=== PATIENT | female | born 1995 | race Caucasian/White ===

== ENCOUNTER 2020-09-23 17:35 | Inpatient (IN) | payer OTHER, MEDICAID, SELFPAY ==
[2020-09-23] VITALS (9 sets, daily range): BP systolic 108–142; BP diastolic 50–85; PULSE 59–77; RESP 16; TEMP 36.6; BMI 26.4
--- NOTE | 2020-09-23 18:07 | PM.IMHP ---
H&P: HPI History of Present Illness Date/Time: 09/23/20 18:07 Chief complaint: Labor Narrative: Francine Cuenca is a 25 year old female at 37 weeks admitted to L and D completely dilated. She started having irregular contractions this morning and became strong and regular approximately 0430. No record available. She states course uncomplicated. Reports history of chlmydia at the beginning of this and treated and states test of cure negative. PMH: She states hiatal hernia. Review of Systems Review of Systems: All systems reviewed & are unremarkable except as noted in HPI and below Constitutional: Constitutional: Reports no additional constitutional complaints and Denies headache(s) Eyes: Eyes: Denies spots in vision ENT: Reports system reviewed and no additional complaints, except as documented and Denies headache(s) Cardiovascular: Cardiovascular: Denies chest pain and Denies dyspnea Respiratory: Respiratory: Denies dyspnea Gastrointestinal: Gastrointestinal: Reports no additional gastrointestinal complaints Genitourinary: Genitourinary: Reports amenorrhea Musculoskeletal: Musculoskeletal: Reports no additional musculoskeletal complaints Integumentary/Breasts: Skin/Breast: Denies breast mass and Denies rash Neurologic: Denies headache(s) Psychiatric: Psychiatric: Reports no additional psychiatric complaints PMFSH Social History Social History Smoking status: Current every day smoker Tobacco type: cigarettes Substance use: current Gender identity (if verbalized by the patient): Female Sexual Orientation (if Verbalized by the Patient): Straight or Heterosexual Spiritual care concerns: No Meds Home Medications and Allergies Allergies Allergy/AdvReac Type Severity Reaction Status Date / Time Sulfa (Sulfonamide Allergy Unknown Verified 09/23/20 18:25 Antibiotics) Vital Signs Vital Signs - 24 hr 09/23/20 17:46 Pulse Rate 77 Blood Pressure 142/85 H Exam Const: General: healthy appearing and uncomfortable Eyes: General: appearance normal, both eyes and all related structures Resp: Effort & Inspection: normal respiratory effort GI: Other: Gravid no fundal tenderness no right upper quadrant pain : Manual OB Exam: other (complete dilated bulging bag) Skin: General skin exam: no rashes or lesions noted Neuro: Cognition (Neuro): normal cognition Extrem: General: normal to inspection Psych: Mental Status: mental status grossly normal Assessment and Plan Assessment and plan (1) Active labor: Status: Acute Assessment and Plan: Admit. Expectant management. Will obtain records. If not available then will draw all of OB labs. Labor admit labs. UDS.
--- NOTE | 2020-09-23 18:13 | P.PCNOB_ITS ---
OB - Delivery Note Procedure Delivery date: 09/23/20 Procedure: Spontaneous vaginal delivery Intrapartal events: Precipitous Labor < 3 hours Induction method: none Delivery monitor: external FHT Route of delivery: Laceration Description: None Specimen: Yes (Placenta and cord) Quantitative Blood Loss (ml): 150 Anesthesia type: None Disposition: floor Complications: None Narrative: Patient presented to labor and delivery. She was completely dilated and bulging bag. Had SROM 1744 clear fluid. She delivered a male over intact perineum. was vigorously crying and placed on maternal abdomen. Delayed cord clamping for 30 seconds then cord clamped and cut. Cord gases and cord blood obtained. Placenta delivered spontaneously and intact. No lacerations. Patient tolerated procedure well. [place] Baby Date of : 09/23/20 Time of : 17:55 Weeks of gestation at delivery: 37 Infant gender: Male presentation: vertex position: Left Occiput Anterior Placenta delivery description: Spontaneous score one minute: 8 score five minutes: 9
[2020-09-23 18:15] LABS: Basophils Absolute Auto 0.1 K/mm3 (0.0-0.1); Basophils Percent Auto 0.3 % (0.2-1.2); Eosinophils Absolute Auto 0.1 K/mm3 (0-0.3); Eosinophils Percent Auto 0.4 % (0-4.4); Hematocrit 37.6 % (37.0-47.0); Hemoglobin 13.3 g/dL (12.0-15.0); Immature Granulocyte Absolute 0.07 K/mm3 (0.00-0.031); Immature Granulocyte Percent A 0.4 % (0-0.5); Lymphocytes Absolute Auto 2.49 K/mm3 (0.9-3.2); Lymphocytes Percent Auto 15.7 % (18.3-44.2); Mean Corpuscular HGB Conc 35.4 g/dl (32-36); Mean Corpuscular Hemoglobin 33.1 pg (26-34); Mean Corpuscular Volume 93.5 fl (80-100); Mean Platelet Volume 10.7 fl (7.4-10.4); Monocytes Absolute Auto 0.8 K/mm3 (0.1-0.6); Monocytes Percent Auto 5.1 % (2.6-8.5); Neutrophils Absolute Auto 12.4 K/mm3 (1.3-6.7); Neutrophils Percent Auto 78.1 % (45.5-73.1); Platelet Count Result 267 k/mm3 (150-375); Red Blood Count 4.02 M/mm3 (4.2-5.4); Red Cell Distribution Width 12.8 % (11.5-14.5); White Blood Count 15.9 K/mm3 (4.5-10.0)
[2020-09-23] MEDS: OXYTOCIN 30 UNITS/NS 500 ML 30 UNITS/500 ML BAG 125 UNITS IV CONT (18:30)
--- NOTE | 2020-09-23 18:45 | LDADM ---
This patient, Francine Cuenca, was admitted to Labor/Delivery/Recovery 106 on 09/23/20 at 17:35. Plans for labor, pain management and were discussed with patient. Patient/family oriented to hospital policies and general routines including ID bracelet, bed and alarms, visiting hours, pain management, procedures, bathroom and other care routines, personal items, smoking policy, room service/diet and guest tray routines, infant security routines, and visiting hours. Patient/Family are encouraged to report perceived risks to care and to ask questions if they do not understand what they are told or what they should do. See OBIX for further documentation.
[2020-09-23] MEDS: IBUPROFEN 600 MG TABLET PO (19:02)
[2020-09-23 19:07] LABS: HIV 1/2 Ab P24 Ag Result Negative (Negative)
[2020-09-23 20:34] LABS: Hepatitis B Surface Antigen Negative (Negative); Rubella IgG Antibody 31.3 IU/ML
[2020-09-23] MEDS: ACETAMINOPHEN 325 MG TABLET 650 MG PO (20:40)
[2020-09-23 20:52] LABS: Amphetamine Screen Urine Negative (Negative); Barbiturate Screen Urine Negative (Negative); Benzodiazepines Screen Urine Negative (Negative); Cannabinoid Screen Urine Positive (Negative); Cocaine Screen Urine Positive (Negative); Methadone Screen Urine Negative (Negative); Opiate Screen Urine Negative (Negative); Phencyclidine Screen Urine Negative (Negative)
[2020-09-24] MEDS: IBUPROFEN 600 MG TABLET PO ×3 (02:45→19:02)
[2020-09-24 07:55] VITALS: BP 121/61; PULSE 62; RESP 18; TEMP 36.4; O2SAT 100
[2020-09-24] MEDS: TETANUS,DIPHTHERIA,AC PERTUSSIS ADULT (0.5 ML) BOOSTRIX IM (08:24)
--- NOTE | 2020-09-24 09:59 | PCCCNOTE ---
Addendum entered by Barbra Arrington 09/24/20 15:51: 1550: Per pt.'s RN, pt. and FOB met with [facility]. DCFS will not allow baby to discharge home with pt. Baby will discharge home with FOB parents (Lauren Cuenca) . FOB was upset by this news and became violent, he has been removed from [facility] and will not be allowed back into the hospital. Pt.'s RN states that she has made a copy of the [facility] workers ID badge and placed it in pt.'s chart. Original Note: Care Coordination spoke with pt. over the phone this morning to discuss discharge planning. Pt.'s current discharge plan is to return home with her , one year old son, brother, and her niece. Pt. states this baby is her third child and her oldest lives with her mother. Pt. confirms she has a supportive family and has everything she needs to bring baby home. During her , pt.'s car was in the shop so she had transportation issues as well as covid concerns that led to her limited care. Pt. confirms she has a car now and her will bring in baby's car seat prior to discharge. Pt. plans on bottle feeding baby and is in process of applying for WIC. Pt. was informed that she tested positive for THC and Cocaine at time of admission. Pt. states she used Marijuana throughout her to assist with her nausea, but she denies Cocaine use. Pt. is aware that Care Coordination will have to report the drug use to [facility]. Pt. states she had a previous [facility] case due to drug use so she understands process and has no questions. Baby's urine is now being tested and his meconium is pending. Care Coordination spoke with Smith Camarena with [facility] and he states that they will investigate report and see pt. while she is at [facility]. Pt.'s RN has been informed. Pt.'s intake number with [facility] is [phone], Care Coordination filled out pt.'s CANTS form and mailed it out. Will follow.
--- NOTE | 2020-09-24 11:12 | PM.OBPNVD ---
OB - PN: Subj Subjective Date/time seen: 09/24/20 11:12 She states Tylenol and Motrin helps pain. She is bottle feeding. She has ambulated. Patient comments: pain well controlled, tolerating diet and other (Decreasing lochia.) [place] baby status: doing well and nursing well OB - PN: Obj Data Labs CBC & Chem 7: 09/24/20 02:51 Labs: Laboratory Results - last 24 hr 09/23/20 09/23/20 09/23/20 18:09 18:09 18:09 WBC 15.9 H RBC 4.02 L Hgb 13.3 Hct 37.6 MCV 93.5 MCH 33.1 MCHC 35.4 RDW 12.8 Plt Count 267 MPV 10.7 H Immature Gran % (Auto) 0.4 Neut % (Auto) 78.1 H Lymph % (Auto) 15.7 L [place] % (Auto) 5.1 Eos % (Auto) 0.4 Baso % (Auto) 0.3 Lymph # (Auto) 2.49 [place] # (Auto) 0.8 H Eos # (Auto) 0.1 Baso # (Auto) 0.1 Abs Immat Gran (auto) 0.07 H Absolute Neuts (auto) 12.4 H Absolute Nucleated RBC 0.0 Nucleated RBC % 0.0 Urine Opiates Screen Urine Methadone Screen Ur Barbiturates Screen Ur Phencyclidine Scrn Ur Amphetamine Screen U Benzodiazepines Scrn Urine Cocaine Screen U Cannabinoids Screen Hep Bs Antigen HIV 1&2 Ab/P24 Ag 4thGn Negative Rubella IgG Antibody Blood Type O Positive Antibody Screen Negative 09/23/20 09/23/20 09/24/20 18:09 20:20 02:51 WBC RBC Hgb 12.0 Hct 35.0 L MCV MCH MCHC RDW Plt Count MPV Immature Gran % (Auto) Neut % (Auto) Lymph % (Auto) [place] % (Auto) Eos % (Auto) Baso % (Auto) Lymph # (Auto) [place] # (Auto) Eos # (Auto) Baso # (Auto) Abs Immat Gran (auto) Absolute Neuts (auto) Absolute Nucleated RBC Nucleated RBC % Urine Opiates Screen Negative Urine Methadone Screen Negative Ur Barbiturates Screen Negative Ur Phencyclidine Scrn Negative Ur Amphetamine Screen Negative U Benzodiazepines Scrn Negative Urine Cocaine Screen Positive A U Cannabinoids Screen Positive A Hep Bs Antigen Negative HIV 1&2 Ab/P24 Ag 4thGn Rubella IgG Antibody 31.3 Blood Type Antibody Screen OB - PN A/P Plan day: 1 Plan: routine care Comments: Patient doing well. Time Spent With Patient Time: Total time spent is greater than 50% in coordination of care (as documented) at patient's floor/unit and/or counseling patient: Exam Const: General: comfortable and no acute distress Eyes: General: appearance normal, both eyes and all related structures Resp: Effort & Inspection: normal respiratory effort GI: Other: nontender Psych: Affect: normal affect Other: Abd: fundus firm below umbilicus, nontender Ext: nontender
[2020-09-24 12:03] LABS: Rapid Plasma Reagin Non-Reactive (NonReactive)
[2020-09-24] MEDS: ACETAMINOPHEN 325 MG TABLET 650 MG PO ×2 (12:27→19:01)
[2020-09-24] MEDS: NICOTINE (*PBKC) 14 MG PATCH 1 PATCH TRANSDERM (17:56)
[2020-09-24 19:10] VITALS: BP 122/69; PULSE 68; RESP 17; TEMP 36.9
[2020-09-25] MEDS: IBUPROFEN 600 MG TABLET PO ×2 (03:00→08:58)
[2020-09-25] MEDS: ACETAMINOPHEN 325 MG TABLET 650 MG PO ×2 (03:00→08:59)
[2020-09-25 07:30] VITALS: BP 133/76; PULSE 87; RESP 18; TEMP 36.6; O2SAT 100
--- NOTE | 2020-09-25 10:18 | PM.OBPNVD ---
OB - PN: Subj Subjective Date/time seen: 09/25/20 10:18 She is bottlefeeding. Patient comments: pain well controlled, tolerating diet and other (Decreasing lochia.) [place] baby status: doing well and nursing well OB - PN: Obj Data Labs CBC & Chem 7: 09/24/20 02:51 Labs: Laboratory Results - last 24 hr 09/23/20 18:09 RPR Non-reactive OB - PN A/P Assessment and Plan (1) Active labor: Status: Acute Assessment and Plan: Doing well . Will discharge home today. (2) Contraception management: Code(s): Z30.9 - Encounter for contraceptive management, unspecified Status: Acute Assessment and Plan: Discussed options. She is planning on getting sterilization in the future. She desires Depo-Provera today. Discussed side effects and risk and benefits. Plan day: 2 Plan: discharge home and other Comments: Patient doing well. Call her primary OB to make follow up appointment which may be 2-4 weeks. Discharge instructions provided. Time Spent With Patient Time: Total time spent is greater than 50% in coordination of care (as documented) at patient's floor/unit and/or counseling patient: Time with patient: less than 15 minutes Exam Const: General: cooperative, comfortable and no acute distress Eyes: General: appearance normal, both eyes and all related structures Resp: Effort & Inspection: normal respiratory effort GI: Other: fundus nontender -4umb firm Extrem: Other: nontender Psych: Affect: normal affect Other: Abd: fundus firm below umbilicus, nontender Ext: nontender
--- NOTE | 2020-09-25 10:21 | PM.DS ---
DS: Admitting Diagnosis Admitting Diagnosis Admitting Diagnosis: Labor DS: Discharge Diagnosis Discharge Diagnosis (1) Active labor: Status: Acute DS: Summary Time Spent with Patient Time attestation: Total time spent providing and/or coordinating discharge services: Exam Const: General: comfortable and no acute distress Eyes: General: appearance normal, both eyes and all related structures Resp: Effort & Inspection: normal respiratory effort GI: Other: fundus firm nontender -4umb Extrem: General: normal to inspection Other: nontender no swelling Psych: Appearance: grossly normal DS: Data Data Completed and Pending Pending studies at discharge: Pending at discharge 09/24/20 07:09 Surgical [PTH] Routine Labs on day of discharge: Labs from last 24 hours 09/23/20 18:09 RPR Non-reactive Discharge Plan Discharge Attending physician on discharge: Kevin Fuentes Discharging Clinician: Kevin Fuentes Anticipated Discharge Date/Time: 09/25/20 10:22 Patient Disposition: Home, Self-Care Activity: pelvic rest Diet: regular Discharge Instructions: Pelvic rest for 4-6 weeks. Call primary OB to make follow up appointment. Call primary OB for fever chills or saturating more than a pad an hour. May take over the counter Tylenol or Motrin for pain. Patient Instructions: Antibiotic Form Stand Alone Forms: General Discharge Information Follow-up/Referrals: Kevin Fuentes MD [Physician] - Call for Appointment (Call primary OB for follow up appointment.) Date of admission: 09/23/20 17:35 Primary Care Provider: PHYSICIAN,CAPSULE INSPECTOR Admitting Provider: Kevin Fuentes Attending physician on admission: Kevin Fuentes
[2020-09-25] MEDS: medroxyPROGESTERone ACETATE IM 150 MG/ML SYR IM (12:54)
[2020-09-27 10:18] VITALS: BP 124/86; PULSE 82; RESP 20; O2SAT 100
== END 2020-09-25 13:26 | disposition home or self-care (01) | DRG 806 ==
LOC: ANHLDR 18:39 → ANHOB2 20:24
PROVIDERS: Admitting Provider Obstetrics & Gynecology; Visit Provider Obstetrics & Gynecology
DX: O62.3 Precipitate labor (principal); Z37.0 Single live birth; O99.324 Drug use complicating childbirth; F12.90 Cannabis use, unspecified, uncomplicated; F14.90 Cocaine use, unspecified, uncomplicated; Z3A.38 38 weeks gestation of pregnancy
CPT/HCPCS: 36415; 80307; 85014; 85018; 85025; 86592; 86703; 86762; 86850; 86900; 86901; 87340; 88307; 90715; A9270; G0432; J1050; J2590